=== PATIENT | male | born 1990 | race Caucasian/White ===

== ENCOUNTER 2017-05-03 17:21 | Emergency (ER) | payer MEDICAID ==
[~2017-05-03] VITALS: Ht 177.8 cm; Wt 72.0 kg
[~2017-05-03 17:21] MED LIST: LANT3I SC; NOVO3I SC
[2017-05-03 17:23] VITALS: Ht 177.8 cm; Wt 72.0 kg
--- NOTE | 2017-05-03 17:33 | ERD ---
ER Documentation Chief Complaint Date/Time DATE: 05/03/17 TIME: 17:32 Chief Complaint needs refill for diabetic meds HPI 26-year-old male who presented emergency department for medication refill for his diabetic medications. Patient stated that he takes Humalog insulin at home and checks his blood sugars twice a day. Added that his blood sugar this morning was about 160s and his blood sugar in time is around 300 mg/dl. Denies headache, loss of consciousness, dizziness, blurry vision, changes in vision, photophobia, facial pain, ear pain, throat pain, difficulty swallowing, neck pain, shoulder pain, chest pain, cough, hemoptysis, abdominal pain, back pain, loss of appetite, nausea, vomiting, hematochezia, diarrhea, constipation, urinary symptoms, bladder and bowel incontinences, extremity weakness, extremity tenderness, numbness or tingling sensation, difficulty walking, recent travel, recent exposure to illness, recent antibiotic use in the last 3 months, fever, chills. Allergy: TheraFlu. Stated this reaction was anaphylaxis. PMH: Diabetes. Medications: Humalog insulin and Lantus insulin. Surgery: Denies. Family history: Denies. 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 Smokes 1 pack of cigarettes a day. He also stated that he smokes medical marijuana. Denies use of alcoholic beverages, illegal drugs. ROS All systems reviewed and are negative except as per history of present illness. Medications Home Meds Active Scripts Insulin Lispro (Humalog) 100 Unit/1 Ml Cartridge, 100 UNIT SQ as directed by PCP , #1 Prov:KRISHNA ROMEO 05/03/17 Insulin Glargine* (Lantus*) 100 Unit/Ml Soln, 30 UNIT SC QHS, #1 VIAL Prov:JIHAN DELGADO PA-C 10/23/16 Insulin Aspart* (Novolog Insulin Pen*) 100 Unit/Ml Soln, 0 SC .SLIDING SCALE AC , #1 EA Prov:JIHAN DELGADO PA-C 10/23/16 Allergies Allergies: Coded Allergies: Fluoride Ion (Verified Allergy, Mild, RASHES, 02/01/07) Uncoded Allergies: THERAFLU (Allergy, Unknown, 10/23/16) PMhx/Soc History of Surgery: No Anesthesia Reaction: No Hx Neurological Disorder: No Hx Respiratory Disorders: No Hx Cardiac Disorders: No Hx Psychiatric Problems: No Hx Miscellaneous Medical Probl: Yes (DM) Hx Alcohol Use: No Hx Substance Use: No Hx Tobacco Use: No Physical Exam Vitals Vital Signs Date Time Temp Pulse Resp B/P Pulse Ox O2 Delivery O2 Flow Rate FiO2 05/03/17 17:23 96.7 89 18 141/80 99 Physical Exam CONSTITUTIONAL: Well-appearing; well-nourished; in no apparent distress. HEAD: Normocephalic; atraumatic. EYES: Conjunctiva clear, sclera non-icteric, EOM intact. PERRL Ears: Hearing intact. EACs clear, TMs non-bulging, non-inflamed, translucent & mobile, ossicles normal appearance, No obstructions, no erythema, no discharges Nose: No obstructions. No polyps. No external lesions. Mucosa non-inflamed. No external lesions, septum and turbinates normal. No rhinorrhea. No discharges. Frontal sinus is non-tender to palpation. Maxillary sinus is non-tender to palpation. MOUTH: Moist mucous membranes, no lesion, no obstructions, no vesicles, no thrush, patent airway Throat: Uvula in midline. Right tonsil is +1 with no erythema, no exudate. Left tonsil is +1 with no erythema, no exudate. Tolerating secretions well. Good gag reflex. Patent airway. Neck: Supple, without lesions, bruits, or adenopathy. No mass. Thyroid non- enlarged and non-tender to palpation. CHEST: Symmetrical chest. Respirations even and not labored. No retractions noted. CARDIOVASCULAR: Normal S1, S2. RRR. No murmurs, gallops. RESPIRATORY: Normal chest excursion with respiration; breath sounds clear and equal bilaterally; no wheezes, rhonchi, or rales. Breathing even and unlabored. Speaking in clear, full, and complete sentences w/ ease. ABDOMEN: Normal bowel sounds normal. Soft, round, non-distended, non-guarding, no tenderness, no rebound, no organomegaly, no masses, no pulsating abdominal mass. No hernia. No peritoneal signs. : No CVA tenderness. BACK: Symmetrical shoulder. Spine is midline without deformity, tenderness. No evidence of trauma or deformity. PELVIS: Stable pelvis. No evidence of trauma or deformity. MUSCULOSKELETAL: Normal gait and station. No misalignment, asymmetry, crepitation, defects, tenderness, masses, effusions, decreased range of motion, instability, atrophy or abnormal strength or tone in the head, neck, spine, ribs , pelvis or extremities. No calf tenderness. NEUROVASCULAR: Distal pulses are present. Pedal pulse are present, equal, and normal. Capillary refills are < 2 seconds. NEUROLOGIC: Alert and oriented x4. Speaks full and clear sentences. Cranial Nerves II-XII normal. Sensation to pain, touch, and proprioception normal. Grossly unremarkable. No neurologic deficits. Romberg test is negative. PSYCHOLOGICAL: The patients mood and manner are appropriate. No hallucinations , delusions. Not SI. Not HI. Has the capacity to decide for self SKIN: Normal for age and ethnicity; warm; dry; good turgor; no apparent lesions or exudates. No rashes, hives, discoloration. Intact. Procedures/MDM Examination: Please see physical examination. Disease process, medical treatment was explained to the patient and family member. They verbalized understanding and agreed with the medical treatment, and follow-up care. Re-evaluation: Consultation: None. Differential diagnosis: Medication refill. Medical decision makin-year-old male who presented emergency department for medication refill for his diabetic medications. Patient stated that he takes Humalog insulin at home and checks his blood sugars twice a day. Added that his blood sugar this morning was about 160s and his blood sugar in time is around 300 mg/dl. patient's complaint, patient's history about his complaint, my physical findings are consistent my final diagnosis medication refill. Medications prescribed are the following: Humalog insulin 1 vial as directed by his primary care physician. Patient and family member are made aware of the side effects and adverse reactions of the medications prescribed. Instructed on when to seek emergent and medical attention in case allergic/anaphylactic reactions or severe side effects and or adverse reactions to medications. Patient and family member verbalized understanding. Patient instructed Instructed to follow-up with his PCP in 24-48 hours. Instructed to Call 911 for chest pain, shortness of breath. Advised to come back here in ED as soon as possible for severity of symptoms which includes but not limited to: any new symptoms; shortness of breath/difficulty of breathing; cardiovascular changes; severe gastrointestinal symptoms; signs and symptoms of bleeding and or infection; signs of compartment syndrome/neurovascular changes; neurological changes/deficits. Patient and family member verbalized understanding. Upon discharge, patient is alert and oriented x 4, speaks full and clear sentences, denies pain, has no neurological deficits, has no neurovascular deficits, difficulty of breathing. Breathing even and unlabored. Lung sounds are clear to auscultation. Not in distress. Appears comfortable. Ambulatory with steady gait. Appears satisfied with care provided here in ED. Departure Diagnosis: Primary Impression: Encounter for medication refill Condition: Good Additional Instructions: Instructed to follow-up with his PCP in 24-48 hours. Instructed to Call 911 for chest pain, shortness of breath. Advised to come back here in ED as soon as possible for severity of symptoms which includes but not limited to: any new symptoms; shortness of breath/difficulty of breathing; cardiovascular changes; severe gastrointestinal symptoms; signs and symptoms of bleeding and or infection; signs of compartment syndrome/neurovascular changes; neurological changes/deficits. Patient and family member verbalized understanding. KRISHNA ROMEO May 03, 2017 17:33
[2017-05-03] MEDS ORDERED: INSU100C SQ (17:34)
[2017-05-03] MEDS ORDERED: LANT3I SC (18:04)
== END 2017-05-03 18:05 | disposition home or self-care (01) ==
LOC: FTE 17:21
DX: Z76.0 Encounter for issue of repeat prescription (principal); E11.9 Type 2 diabetes mellitus without complications; F17.210 Nicotine dependence, cigarettes, uncomplicated; Z79.4 Long term (current) use of insulin
CPT/HCPCS: 99281

== ENCOUNTER 2017-07-20 08:39 | Inpatient (IN) | payer MEDICAID, OTHER ==
[~2017-07-20] VITALS: Ht 185.4 cm; Wt 71.9 kg
[~2017-07-20 08:39] MED LIST changes: +INSU100C SQ
[2017-07-20] MEDS ORDERED: SOD CHLORIDE 0.9% 2,000 ML IV STA (08:55)
[2017-07-20] MEDS ORDERED: ONDANSETRON 4 MG INJ IV STA ×2 (08:55→12:00)
--- NOTE | 2017-07-20 09:30 | RADRPT ---
PROCEDURE: Chest radiograph CLINICAL INDICATION: Hyperglycemia.. COMPARISON: None relevant listed. TECHNIQUE: Single frontal chest radiograph. FINDINGS: The lungs are clear. No pleural effusion or focal parenchymal opacity. The cardiomediastinal silhouette is normal. No suspicious bone lesion. IMPRESSION: No acute cardiopulmonary abnormality. RPTAT: PP Physician Srini Date Time Electronically viewed and signed by Bahman Loredo Physician on 07/20/2017 09:29 LG/
[2017-07-20 09:47] LABS: BASOPHIL # 0.1 10^3/ul (0.0-0.1); BASOPHILS % 0.6 % (0.0-2.0); EOSINOPHILS # 0.1 10^3/ul (0.0-0.5); EOSINOPHILS % 0.6 % (0.0-7.0); HEMATOCRIT 45.3 % (42.0-52.0); HEMOGLOBIN 15.3 g/dl (14.0-18.0); LYMPHOCYTES # 2.7 10^3/ul (0.8-2.9); LYMPHOCYTES % 29.7 % (15.0-51.0); MEAN CORPUSCULAR HEMOGLOBIN 30.7 pg (29.0-33.0); MEAN CORPUSCULAR HGB CONC 33.8 g/dl (32.0-37.0); MEAN CORPUSCULAR VOLUME 90.8 fl (82.0-101.0); MEAN PLATELET VOLUME 10.9 fl (7.4-10.4); MONOCYTE # 0.5 10^3/ul (0.3-0.9); MONOCYTES % 5.9 % (0.0-11.0); NEUTROPHILS % 62.4 % (39.0-77.0); PLATELET COUNT 267 10^3/UL (140-415); RED BLOOD COUNT 4.99 10^6/ul (4.70-6.10); RED CELL DISTRIBUTION WIDTH 11.9 % (11.5-14.5)
[2017-07-20 09:56] LABS: ADD UMIC NO; UR ASCORBIC ACID NEGATIVE (NEGATIVE); UR BILIRUBIN (Dip) NEGATIVE (NEGATIVE); UR BLOOD (Dip) NEGATIVE (NEGATIVE); UR CLARITY CLEAR (CLEAR); UR COLOR STRAW (YELLOW); UR GLUCOSE (Dip) 3+ mg/dL (NEGATIVE); UR KETONES (Dip) 2+ mg/dL (NEGATIVE); UR LEUKOCYTE ESTERASE (Dip) NEGATIVE Leu/ul (NEGATIVE); UR NITRITE (Dip) NEGATIVE (NEGATIVE); UR SPECIFIC GRAVITY (Dip) 1.025 (1.003-1.030); UR TOTAL PROTEIN (Dip) NEGATIVE (NEGATIVE); UR UROBILINOGEN (Dip) NEGATIVE (NEGATIVE)
[2017-07-20 10:12] LABS: Arterial Base Excess -20.5 mmol/L (-3.0-3); Arterial COHb 0.9 % (0.0-3.0); Arterial Fraction of Oxyhgb 77.4 % (93.0-99.0); Arterial HCO3 7.3 mmol/L (22.0-26.0); Arterial MetHb 0.3 % (0.0-1.5); Arterial Total Hemglobin 15.6 g/dl (12.0-18.0); MODE ROOM AIR; Sample Type Blood venous
[2017-07-20] MEDS ORDERED: INSULIN HUMAN REGULAR 100 UNIT in SOD CHLORIDE 0.9% 99 ML IV STA (10:15)
[2017-07-20 10:17] LABS: INR 0.87; PROTIME 11.8 Sec (12.2-14.2); PT RATIO 0.9
[2017-07-20 10:18] LABS: PARTIAL THROMBOPLASTIN TIME 24.8 Sec (25.0-35.0)
[2017-07-20 10:26] LABS: ALANINE AMINOTRANSFERASE 38 IU/L (13-69); ALBUMIN 4.6 g/dl (3.3-4.9); ALKALINE PHOSPHATASE 137 IU/L (42-121); AMYLASE 54 U/L (11-123); ANION GAP 34 (8-16); ASPARTATE AMINO TRANSFERASE 33 IU/L (15-46); BILIRUBIN,INDIRECT 0.3 mg/dl (0-1.1); BILIRUBIN,TOTAL 0.3 mg/dl (0.2-1.3); BLOOD UREA NITROGEN 19 mg/dl (7-20); CALCIUM 9.8 mg/dl (8.4-10.2); CHLORIDE 101 mmol/L (97-110); CREATININE 0.76 mg/dl (0.61-1.24); GLUCOSE 374 mg/dl (70-220); MAGNESIUM 1.6 mg/dl (1.7-2.5); PHOSPHORUS 4.2 mg/dl (2.5-4.9); POTASSIUM 4.9 mmol/L (3.5-5.1); SODIUM 139 mmol/L (135-144); TOTAL PROTEIN 7.3 g/dl (6.1-8.1)
[2017-07-20 10:29] LABS: CARBON DIOXIDE 9 mmol/L (21-31)
[2017-07-20 10:52] LABS: TROPONIN-I < 0.012 ng/ml (0.00-0.12)
[2017-07-20] MEDS ORDERED: LANT3I SC (11:59)
[2017-07-20] MEDS ORDERED: INSU100C SQ (12:01)
[2017-07-20] MEDS ORDERED: SOD CHLORIDE 0.9% 1,000 ML IV ONE (13:00)
--- NOTE | 2017-07-20 13:13 | ERA ---
ER Documentation Chief Complaint Date/Time DATE: 07/20/17 TIME: 13:09 Chief Complaint off insulin a day, frecuent urination, thirsty, palpitations HPI This is a very pleasant 27-year-old male with a known history of insulin- dependent diabetes mellitus, diagnosed 13 years of age, who takes Lantus 30 units at midnight and Humalog before every meal, presents to the emergency department today complaining of roughly 12 hours of palpitations, polyuria and polydipsia. The patient indicates he has not taken any of his diabetic medication for the past 24 hours as he ran out of the meds. He denies any fever shaking or chills. He denies any chest pain or pressure that radiates to the neck arm back or jaw. He states he has never had any complications such as diabetic ketoacidosis. He denies any recent travel or prolonged immobilization. ROS All systems reviewed and are negative except as per history of present illness. Medications Home Meds Reported Medications Insulin Lispro (Humalog) 100 Unit/1 Ml Cartridge, 0-100 UNIT SQ AC MEALS AND BEDTIME 07/20/17 Insulin Glargine* (Lantus*) 100 Unit/Ml Soln, 30 UNIT SC MIDNIGHT, #1 VIAL 07/20/17 Discontinued Scripts Insulin Glargine* (Lantus*) 100 Unit/Ml Soln, 1 UNIT SC as directed by PCP Y for as directed by PCP, #1 VIAL Prov:KRISHNA ROMEO 05/03/17 Insulin Lispro (Humalog) 100 Unit/1 Ml Cartridge, 100 UNIT SQ as directed by PCP , #1 Prov:KRISHNA ROMEO 05/03/17 Insulin Glargine* (Lantus*) 100 Unit/Ml Soln, 30 UNIT SC QHS, #1 VIAL Prov:JIHAN DELGADO PA-C 10/23/16 Insulin Aspart* (Novolog Insulin Pen*) 100 Unit/Ml Soln, 0 SC .SLIDING SCALE AC , #1 EA Prov:JIHAN DELGADO PA-C 10/23/16 Allergies Allergies: Coded Allergies: Fluoride Ion (Verified Allergy, Mild, RASHES, 02/01/07) Uncoded Allergies: THERAFLU (Allergy, Unknown, 10/23/16) PMhx/Soc History of Surgery: No Anesthesia Reaction: No Hx Neurological Disorder: No Hx Respiratory Disorders: No Hx Cardiac Disorders: No Hx Psychiatric Problems: No Hx Miscellaneous Medical Probl: Yes (DM) Hx Alcohol Use: No Hx Substance Use: No Hx Tobacco Use: No Smoking Status: Current some day smoker Physical Exam Vitals Vital Signs Date Time Temp Pulse Resp B/P Pulse Ox O2 Delivery O2 Flow Rate FiO2 07/20/17 13:00 86 16 128/71 100 Room Air 07/20/17 12:00 85 18 145/72 99 Room Air 07/20/17 08:44 98.1 87 18 132/77 99 Physical Exam Constitutional:Well-developed. Well-nourished. HEENT:Normocephalic. Atraumatic.Pupils were equal round reactive to light. Very dry mucous membranes.No tonsillar exudates. Neck: No nuchal rigidity. No lymphadenopathy. No posterior cervical spine tenderness or step-offs. Respiratory: Not using accessory muscles of respiration.Lungs were clear to auscultation bilaterally. No rhonchi. No rales. No wheezing. Cardiovascular: Regular rate regular rhythm.No murmurs. No rubs were appreciated.S1, S2 normal. Distal pulses are palpable 2+ bilaterally. GI: Abdomen was soft. Nontender. Non Distended. No pulsatile abdominal masses or bruits. No rebound. No guarding. Bowel sounds were present and normal. Muscle skeletal: Full range of motion of both the upper and lower extremities bilaterally.Normal muscle tone.No assymetrical calf tenderness or swelling. Skin: No petechia, no purpura. No lesions on the palms or the soles of the feet. No maculopapular rash. NEURO: Patient was alert, awake, orientated x3.No facial droop. Gait observed and normal with no ataxia.Speech had regular rate and rhythm. No focal neurological deficits. Result Diagram: 07/20/1792707/20/17927 Results 24 hrs Laboratory Tests Test 07/20/17 08:55 07/20/17 09:25 07/20/17 09:28 07/20/17 11:25 Blood Gas Specimen Source Blood venous Arterial Blood Date Drawn 07/20/2017 10:00:30 AM Arterial Blood pH (Temp corrected) 7.109 Arterial Blood pCO2 (Temp correct) 23.6mmhg Arterial Blood pO2 (Temp corrected) 50.2mmHG Arterial Blood HCO3 7.3mmol/L Arterial Blood Base Excess -20.5mmol/L Arterial Blood Oxygen Saturation 78.3mmHG Indra Test N/A Arterial Blood Gas Puncture Site VENOUS LINE Arterial Blood Carboxyhemoglobin 0.9% Arterial Blood Methemoglobin 0.3% Oxyhemoglobin Percent 77.4% Total Hemoglobin 15.6g/dl Blood Gas Temperature 37.0C Blood Gas Modality ROOM AIR FiO2 21.0% Blood Gas Critical Value Read Back DR. CEBALLOS Blood Gas Notified Whom RT Blood Gas Notified Time 07/20/2017 10:11:59 AM Bedside Glucose 359mg/dL 310mg/dL White Blood Count 9.010^3/ul Red Blood Count 4.9910^6/ul Hemoglobin 15.3g/dl Hematocrit 45.3% Mean Corpuscular Volume 90.8fl Mean Corpuscular Hemoglobin 30.7pg Mean Corpuscular Hemoglobin Concent 33.8g/dl Red Cell Distribution Width 11.9% Platelet Count 15510^3/UL Mean Platelet Volume 10.9fl Neutrophils % 62.4% Lymphocytes % 29.7% Monocytes % 5.9% Eosinophils % 0.6% Basophils % 0.6% Nucleated Red Blood Cells % 0.0/100WBC Neutrophils # (Manual) 5.610^3/ul Lymphocytes # 2.710^3/ul Monocytes # 0.510^3/ul Eosinophils # 0.110^3/ul Basophils # 0.110^3/ul Nucleated Red Blood Cells # 0.010^3/ul Prothrombin Time 11.8Sec Prothrombin Time Ratio 0.9 INR International Normalized Ratio 0.87 Activated Partial Thromboplast Time 24.8Sec Urine Color STRAW Urine Clarity CLEAR Urine pH 5.0 Urine Specific Sims 1.025 Urine Ketones 2+mg/dL Urine Nitrite NEGATIVEmg/dL Urine Bilirubin NEGATIVEmg/dL Urine Urobilinogen NEGATIVEmg/dL Urine Leukocyte Esterase NEGATIVELeu/ul Urine Hemoglobin NEGATIVEmg/dL Urine Glucose 3+mg/dL Urine Total Protein NEGATIVEmg/dl Sodium Level 139mmol/L Potassium Level 4.9mmol/L Chloride Level 101mmol/L Carbon Dioxide Level 9mmol/L Anion Gap 34 Blood Urea Nitrogen 19mg/dl Creatinine 0.76mg/dl Glucose Level 374mg/dl Lactic Acid Level 1.4mmol/L Calcium Level 9.8mg/dl Phosphorus Level 4.2mg/dl Magnesium Level 1.6mg/dl Total Bilirubin 0.3mg/dl Direct Bilirubin 0.00mg/dl Indirect Bilirubin 0.3mg/dl Aspartate Amino Transf (AST/SGOT) 33IU/L Alanine Aminotransferase (ALT/SGPT) 38IU/L Alkaline Phosphatase 137IU/L Troponin I < 0.012ng/ml Total Protein 7.3g/dl Albumin 4.6g/dl Globulin 2.70g/dl Albumin/Globulin Ratio 1.70 Amylase Level 54U/L Lipase 59U/L Test 07/20/17 12:32 Bedside Glucose 290mg/dL Current Medications Medications (Trade) Dose Ordered Sig/Beni Route PRN Reason Start Time Stop Time Status Last Admin Dose Admin Sodium Chloride (NS) 2,000 ml @ 1,000 mls/hr Q2H STAT IV 07/20/17 08:55 07/20/17 10:54 DC 07/20/17 09:33 Ondansetron HCl 4 mg 4 mg ONCE STAT IV 07/20/17 08:55 07/20/17 09:00 DC 07/20/17 09:33 Insulin Human Regular/Sodium Chloride (Novolin-R/NS) 100 ml @ 0 mls/hr TITRATE STAT IV 07/20/17 10:15 07/20/17 10:18 DC 07/20/17 11:29 Ondansetron HCl 4 mg 4 mg ONCE STAT IV 07/20/17 12:00 07/20/17 12:01 DC 07/20/17 12:21 Sodium Chloride (NS) 1,000 ml @ 500 mls/hr Q2H ONCE IV 07/20/17 13:00 07/20/17 14:59 07/20/17 12:54 Procedures/MDM This patient presented to the emergency department with polyuria polydipsia and a known history of insulin-dependent diabetes mellitus. He immediately was placed on a hospital monitor continuous pulse oximetry and IV access was established by nursing staff. 12 Lead EKG tracing ordered and reviewed by myself showed: Normal sinus rhythm of 81 bpm and no arrhythmia. PA interval normal. QRS duration normal. No ST segment elevation No ST segment depression. No changes consistent with acute ischemia. The patient had hyperglycemia, and anion gap, ketosis and acidosis seen on the arterial blood gas. His findings were consistent with diabetic ketoacidosis. He had received 2 L boluses of normal saline was immediately placed on an insulin drip to improve the patient's anion gap. He will be admitted in serious condition to the intensive care unit under the care of Dr. Jacobson. Critical Care: Time: 55 minutes Treatments/Evaluations: Close monitoring and treatment of unstable vital signs, cardiorespiratory, and neurologic status, while maintaining tight balance of fluid, respiratory, and cardiac interventions. Time does not include performing any of the above billable procedures. Departure Diagnosis: Primary Impression: Diabetic ketoacidosis Qualified Code: E10.10 - Diabetic ketoacidosis without coma associated with type 1 diabetes mellitus Condition: Serious TUCKERJONATHON MANDEL Jul 20, 2017 13:13
[2017-07-20] MEDS: DEXTROSE 5%-0.9% NACL 1,000 ML IV SCH ×2 (14:35→17:01)
--- NOTE | 2017-07-20 15:45 | HP ---
Date/Time of Note Date/Time of Note DATE: 07/20/17 TIME: 15:37 Assessment/Plan VTE Prophylaxis VTE Prophylaxis Intervention: ambulation Assessment/Plan Assessment/Plan 27yo with type-1 diabetes, now with diabetic ketoacidosis after going without insulin for a couple days. * Admit to ICU with insulin drip * Fluid resuscitation * Accuchecks qAC, qHS * Send HgbA1c * Diabetic education * Full-code * Famotidine for GI protection * Lovenox for DVT prevention Erika Jacobson MD PhD [phone] HPI/ROS Admit Date/Time Admit Date/Time 20 Jul 2017 Hx of Present Illness 27-year-old man with diabetes who ran out of insulin the end of last week and began feeling dizzy and weak last night with rapid heartbeat and frequent urination. He was found in the ER to be in diabetic ketoacidosis with severe gap acidosis (pH 7.1 on ABG), hyperglycemia, and dehydration. Diagnosed at age 13. He normally takes Lantus at bedtime and pre-prandial insulin on a sliding scale. He has had only one previous admission for DKA, in January 2007. ROS No headache, visual change, chest pain, dyspnea, or nausea. PMH/Family/Social Social History Smoking Status: Current some day smoker Exam/Review of Systems Vital Signs Vitals Vital Signs Date Time Temp Pulse Resp B/P Pulse Ox O2 Delivery O2 Flow Rate FiO2 07/20/17 15:00 86 16 125/74 100 Room Air 07/20/17 08:44 98.1 Exam Constitutional: alert, oriented, well developed Psych: nl mood/affect, no complaints Head: atraumatic, normocephalic Eyes: EOMI, PERRL, nl conjunctiva ENMT: other (moist oral mucosa) Neck: non-tender, supple, No jvd, No masses, No nuchal rigidity, No thyromegaly Respiratory: clear to auscultation, normal air movement Cardiovascular: nl pulses, regular rate and rhythm, No diastolic murmur, No edema, No jugular venous distention (JVD), No murmurs /extra sounds, No rub, No systolic murmur Gastrointestinal: bowel sounds, nl liver, spleen, non-tender, soft, No distended, No firm, No hepatomegaly, No mass, No rebound or guarding, No splenomegaly, No surgical scars, No tender Genitourinary - Male: other (No CVA tenderness) Extremities: normal pulses, No calf tenderness, No clubbing, No cyanosis, No edema, No palpable cord, No pitting pedal edema, No tenderness 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 Jul 20, 2017 15:45
[2017-07-20] MEDS ORDERED: SOD CHLORIDE 0.9% 1,000 ML IV SCH (15:49)
[2017-07-20] MEDS ORDERED: DOCUSATE SODIUM 100 MG CAP PO PRN (16:00)
[2017-07-20] MEDS ORDERED: ZOLPIDEM 5 MG TAB PO PRN (16:00)
[2017-07-20] MEDS ORDERED: ONDANSETRON 4 MG TAB PO PRN (16:00)
[2017-07-20] MEDS ORDERED: ACETAMINOPHEN 325 MG TAB PO PRN (16:00)
[2017-07-20] MEDS ORDERED: NACL 0.9% 3 ML SYG IV SCH (16:00)
[2017-07-20 16:35] LABS: CALCIUM 8.1 mg/dl (8.4-10.2); CREATININE 0.66 mg/dl (0.61-1.24); MAGNESIUM 1.6 mg/dl (1.7-2.5); PHOSPHORUS 2.5 mg/dl (2.5-4.9); POTASSIUM 4.2 mmol/L (3.5-5.1)
[2017-07-20] MEDS: FAMOTIDINE 20 MG TAB PO SCH ×2 (17:00→22:39)
[2017-07-20] MEDS: ENOXAPARIN 40 MG/0.4 ML SYG SC SCH (17:00)
[2017-07-20] MEDS ORDERED: MAGNESIUM OXIDE 400 MG TAB PO ONE (17:30)
[2017-07-20 20:35] VITALS: PULSE 84
[2017-07-20 20:35] LABS: CALCIUM 8.4 mg/dl (8.4-10.2); CREATININE 0.69 mg/dl (0.61-1.24); MAGNESIUM 1.7 mg/dl (1.7-2.5); PHOSPHORUS 3.6 mg/dl (2.5-4.9); POTASSIUM 4.2 mmol/L (3.5-5.1)
[2017-07-20] MEDS ORDERED: INSULIN HUMAN REGULAR 100 UNIT in SOD CHLORIDE 0.9% 99 ML IV SCH (21:00)
[2017-07-20] MEDS ORDERED: DEXTROSE 50% 50 ML SYRINGE IV PRN ×2 (21:00)
[2017-07-20] MEDS ORDERED: ACCU-CHEK XX SCH (21:00)
[2017-07-20 21:30] VITALS: BP 120/73; PULSE 78; RESP 19
[2017-07-20 22:00] VITALS: BP 120/80; PULSE 79; RESP 21; Ht 185.4 cm; Wt 71.9 kg
[2017-07-20] MEDS ORDERED: INSULIN GLARGINE [LANtus] 3 ML PEN SC ONE (22:00)
[2017-07-20 23:00] VITALS: BP 124/71; PULSE 78; RESP 20
[2017-07-21] VITALS (10 sets, daily range): BP systolic 109–123; BP diastolic 65–80; PULSE 61–79; RESP 13–19
[2017-07-21] MEDS ORDERED: GLUCAGON 1 MG INJ IM PRN (03:00)
[2017-07-21] MEDS ORDERED: GLUCOSE GEL 15 GRAM TUBE BUCCAL PRN (03:00)
[2017-07-21] MEDS ORDERED: DEXTROSE 50% 50 ML SYRINGE IV PRN ×2 (03:00)
[2017-07-21] MEDS ORDERED: GLUCOSE GEL 15 GRAM TUBE PO PRN ×2 (03:00)
[2017-07-21 04:14] LABS: BASOPHILS % 0.3 % (0.0-2.0); EOSINOPHILS # 0.1 10^3/ul (0.0-0.5); EOSINOPHILS % 0.8 % (0.0-7.0); HEMATOCRIT 38.6 % (42.0-52.0); HEMOGLOBIN 13.1 g/dl (14.0-18.0); LYMPHOCYTES # 2.5 10^3/ul (0.8-2.9); LYMPHOCYTES % 35.2 % (15.0-51.0); MEAN CORPUSCULAR HEMOGLOBIN 30.5 pg (29.0-33.0); MEAN CORPUSCULAR HGB CONC 33.9 g/dl (32.0-37.0); MEAN PLATELET VOLUME 10.6 fl (7.4-10.4); MONOCYTE # 0.5 10^3/ul (0.3-0.9); MONOCYTES % 6.3 % (0.0-11.0); NEUTROPHILS % 56.7 % (39.0-77.0); PLATELET COUNT 221 10^3/UL (140-415); RED BLOOD COUNT 4.29 10^6/ul (4.70-6.10); RED CELL DISTRIBUTION WIDTH 12.2 % (11.5-14.5); WHITE BLOOD COUNT 7.1 10^3/ul (4.8-10.8)
[2017-07-21 04:36] LABS: CALCIUM 8.3 mg/dl (8.4-10.2); CREATININE 0.66 mg/dl (0.61-1.24); MAGNESIUM 1.8 mg/dl (1.7-2.5); PHOSPHORUS 2.8 mg/dl (2.5-4.9)
[2017-07-21 05:07] LABS: THYROID STIMULATING HORMONE 0.694 MIU/L (0.465-4.680)
[2017-07-21] MEDS: INSULIN ASPART [NOVOLOG] 3 ML PEN SC SCH ×3 (09:33→18:09)
[2017-07-21] MEDS: ENOXAPARIN 40 MG/0.4 ML SYG SC SCH (09:34)
[2017-07-21] MEDS: FAMOTIDINE 20 MG TAB PO SCH (09:34)
[2017-07-21] MEDS ORDERED: INSULIN ASPART [NOVOLOG] 3 ML PEN SC SCH (18:05)
--- NOTE | 2017-07-21 18:13 | PN ---
Date/Time of Note Date/Time of Note DATE: 07/21/17 TIME: 18:07 Assessment/Plan VTE Prophylaxis VTE Prophylaxis Intervention: LMWH Lines/Catheters IV Catheter Type (from Nrsg): Saline Lock Assessment/Plan Assessment/Plan 27 yo with 1. Type-1 diabetes mellitus, s/p diabetic ketoacidosis after running out of insulin, Vision recovered very well, currently blood sugars are well controlled. He is very anxious and wants to go home. He does have a glucometer at home. He needs prescriptions for long acting insulin along with a pre-meal insulin I did check with insurance he seems like his call coverage for Humalog for short acting and Basaglar for long acting. Patient is not willing to wait for diabetic education, he has received this in the past, he verbalized that he may leave AGAINST MEDICAL ADVICE if not otherwise discharge, he is stable for discharge at this time, he will be given his dose of Lantus tonight and is subsequently discharged home with prescription for pre-meal and long-acting insulin. Follow-up with primary care physician within 1 week Referral to endocrinology from [facility]. Diabetic diet Prophylaxis:Famotidine for GI prophylaxis and Lovenox for DVT prophylaxis. Disposition: Discharge home tonight. Subjective 24 Hr Interval Summary Free Text/Dictation Patient doing well, I have confirmed with his insurance which form of insulin is covered, he will be given a prescription for discharge planning tonight after he gets his dose of Lantus. Exam/Review of Systems Vital Signs Vitals Vital Signs Date Time Temp Pulse Resp B/P Pulse Ox O2 Delivery O2 Flow Rate FiO2 07/21/17 14:00 97.8 77 18 116/65 98 07/21/17 01:00 Room Air Intake and Output 07/20/17 07/20/17 07/21/17 14:59 22:59 06:59 Intake Total 3000 ml 300 ml 800 ml Output Total 300 ml 675 ml Balance 3000 ml 0 ml 125 ml Exam Constitutional: alert, oriented, well developed Respiratory: clear to auscultation, normal air movement Cardiovascular: nl pulses, regular rate and rhythm Gastrointestinal: non-tender, soft Musculoskeletal: nl extremities to inspection Extremities: normal pulses, other (No edema, clubbing or cyanosis) Neurological: SPIRAL BINDER II-XII intact, nl mental status, nl speech, nl strength Results Result Diagram: 07/21/172 07/21/17 0402 Results 24 hrs Laboratory Tests Test 07/20/17 18:46 07/20/17 19:53 07/20/17 20:00 07/20/17 20:35 Bedside Glucose 93 98 89 Sodium Level 141 Potassium Level 4.2 Chloride Level 110 Carbon Dioxide Level 15 L Anion Gap 20 H Blood Urea Nitrogen 15 Creatinine 0.69 Glucose Level 96 # Calcium Level 8.4 Phosphorus Level 3.6 Magnesium Level 1.7 Test 07/20/17 21:05 07/21/17 04:02 07/21/17 08:12 07/21/17 09:31 Bedside Glucose 90 197 189 White Blood Count 7.1 # Red Blood Count 4.29 L Hemoglobin 13.1 L Hematocrit 38.6 L Mean Corpuscular Volume 90.0 Mean Corpuscular Hemoglobin 30.5 Mean Corpuscular Hemoglobin Concent 33.9 Red Cell Distribution Width 12.2 Platelet Count 221 Mean Platelet Volume 10.6 H Neutrophils % 56.7 Lymphocytes % 35.2 Monocytes % 6.3 Eosinophils % 0.8 Basophils % 0.3 Nucleated Red Blood Cells % 0.0 Neutrophils # (Manual) 4.0 Lymphocytes # 2.5 Monocytes # 0.5 Eosinophils # 0.1 Basophils # 0.0 Nucleated Red Blood Cells # 0.0 Sodium Level 133 L Potassium Level 4.0 Chloride Level 106 Carbon Dioxide Level 17 L Anion Gap 14 Blood Urea Nitrogen 15 Creatinine 0.66 Glucose Level 262 #H Hemoglobin A1c 13.2 H Calcium Level 8.3 L Phosphorus Level 2.8 Magnesium Level 1.8 Thyroid Stimulating Hormone (TSH) 0.694 Test 07/21/17 12:13 Bedside Glucose 169 Medications Medications Current Medications Ondansetron HCl (Zofran Tab) 4 mg Q6H PRN PO NAUSEA AND/OR VOMITING; Start at 16:00 Acetaminophen (Tylenol Tab) 650 mg Q6H PRN PO PAIN LEVEL 1-3 OR FEVER; Start at 16:00 Docusate Sodium (Colace) 100 mg Q12H PRN PO CONSTIPATION; Start 07/20/17 at 16: 00 Zolpidem Tartrate (Ambien) 5 mg QHS PRN PO SLEEP; Start 07/20/17 at 16:00 Famotidine (Pepcid) 20 mg Q12 PO Last administered on 07/21/17t 09:34; Admin Dose 20 MG; Start 07/20/17 at 16:00 Enoxaparin Sodium (Lovenox) 40 mg DAILY SC Last administered on 07/21/17 09:34 ; Admin Dose 40 MG; Start 07/20/17 at 16:00 Insulin Glargine (Lantus) 30 unit QHS SC ; Start 07/21/17 at 21:00 Miscellaneous Information 1 ea NOTE XX ; Start 07/21/17 at 03:00 Glucose (Glutose) 15 gm Q15M PRN PO DECREASED GLUCOSE; Start 07/21/17 at 03:00 Glucose (Glutose) 22.5 gm Q15M PRN PO DECREASED GLUCOSE; Start 07/21/17 at 03: 00 Dextrose (D50w Syringe) 25 ml Q15M PRN IV DECREASED GLUCOSE; Start 07/21/17 at 03:00 Dextrose (D50w Syringe) 50 ml Q15M PRN IV DECREASED GLUCOSE; Start 07/21/17 at 03:00 Glucagon (Glucagen) 1 mg Q15M PRN IM DECREASED GLUCOSE; Start 07/21/17 at 03:00 Glucose (Glutose) 15 gm Q15M PRN BUCCAL DECREASED GLUCOSE; Start 07/21/17 at 03 :00 Diagnostic Test (Pha) (Accu-Chek) 1 ea 02 XX ; Start 07/22/17 at 02:00 SON BRUNNER Jul 21, 2017 18:13
--- NOTE | 2017-07-21 18:14 | PDOCDIS ---
Discharge Instructions CONDITION Patient Condition: Stable HOME CARE INSTRUCTIONS: Special Diet: carb controlled ACTIVITY: Activity Restrictions: No Restrictions FOLLOW UP/APPOINTMENTS Follow-up Plan Follow-up with primary care physician within 1 week Referral to endocrinology through [facility], re type I diabetic mellitus, status post DKA largely secondary to noncompliance. SON BRUNNER Jul 21, 2017 18:14
[2017-07-21] MEDS ORDERED: LANT3I SC (18:20)
[2017-07-21] MEDS ORDERED: INSU200I SQ (18:20)
[2017-07-21] MEDS ORDERED: INSULIN GLARGINE [LANtus] 3 ML PEN SC ONE ×2 (19:00→19:30)
[2017-07-21] MEDS ORDERED: INSULIN GLARGINE [LANtus] 3 ML PEN SC SCH (21:00)
[2017-07-22] MEDS ORDERED: ACCU-CHEK XX SCH (02:00)
== END 2017-07-21 19:59 | disposition home or self-care (01) | DRG 639 ==
LOC: E/R 08:39 → ICU 12:02 → PP2 07-21 08:08
PROVIDERS: ADMIT Internal Medicine; ATTEND Internal Medicine
DX: E10.10 Type 1 diabetes mellitus with ketoacidosis without coma (principal); R00.2 Palpitations; R35.0 Frequency of micturition; Z79.4 Long term (current) use of insulin
CPT/HCPCS: 36415; 36600; 71010; 80048; 80053; 81003; 82150; 82803; 82962; 83036; 83605; 83690; 83735; 84100; 84443; 84484; 85025; 85610; 85730; 87081; 93005; 96361; 96372; 96374; 96375; 96376; J1650; J1815; J2405; J7030; J7042

== ENCOUNTER 2018-01-01 22:43 | Emergency (ER) | END 2018-01-02 02:24 | disposition home or self-care (01) ==

== ENCOUNTER 2018-04-16 17:02 | Emergency (ER) | END 2018-04-16 17:20 | disposition home or self-care (01) ==